=== PATIENT | male | born 1960 | race Two or more races ===

== ENCOUNTER 2018-09-29 11:43 | Inpatient (IN) | payer OTHER, MEDICAID ==
[~2018-09-29] VITALS: Ht 180.3 cm; Wt 130.9 kg
[2018-09-29 12:18] LABS: Basophils # (auto) 0.1 uL; Basophils % (auto) 0.8 % (0.0-2.0); Eosinophils # (auto) 0.1 uL; Eosinophils % (auto) 0.6 % (0.0-7.0); Hematocrit 43.1 % (41.0-53.0); Hemoglobin 14.1 g/dL (13.5-17.5); Lymphocytes # (auto) 1.3 uL; Lymphocytes % (auto) 14.2 % (10.0-50.0); Mean Corpuscular Hemoglobin 29.9 pg (28.0-32.0); Mean Corpuscular Hgb Conc. 32.6 g/dL (32.0-36.0); Mean Corpuscular Volume 91.7 fL (80.0-100.0); Monocytes # (auto) 1.2 uL; Monocytes % (auto) 13.3 % (0.0-12.0); Neutrophils # (auto) 6.5 uL; Neutrophils % (auto) 71.1 % (37.0-80.0); Platelet Count (auto) 212 10^3/uL (140-450); White Blood Cell 9.1 10^3/uL (4.4-10.8)
[2018-09-29 12:36] LABS: Albumin 2.9 g/dL (3.4-5.0); Calcium 7.9 mg/dL (8.5-10.1); Potassium 4.6 mmol/L (3.5-5.1)
[2018-09-29 12:42] LABS: BUN/Creatinine Ratio 15.8; Bilirubin, Total 0.5 mg/dL (0.2-1.0)
[2018-09-29] MEDS ORDERED: SODIUM CHLORIDE 0.9% 1,000 ML IV ONE (15:13)
[2018-09-29] MEDS ORDERED: ASPirin 81 mg TAB PO ONE (15:15)
[2018-09-29 15:46] LABS: Urine Bacteria NONE SEEN /hpf (None Seen); Urine Blood 1+ /uL (Negative); Urine Specific Gravity 1.013 (1.001-1.035); Urine WBC 3 /hpf (0 - 3)
[2018-09-29 16:06] LABS: INR 3.76 (0.9-1.15)
[2018-09-29] MEDS ORDERED: PROMETHAZINE HCL 25 MG/ML 1ML IV ONE (16:15)
[2018-09-29] MEDS ORDERED: MORPHINE SULFATE 4 MG/ML SYR/VIAL IV ONE (16:15)
[2018-09-29] MEDS ORDERED: KETOROLAC TROMETH 30 MG/ML 1ML VIAL IV ONE (16:30)
[2018-09-29] MEDS ORDERED: NITROGLYCERIN 0.4 MG SL TAB SL PRN (19:45)
[2018-09-29] MEDS ORDERED: MEPERIDINE HCL (25 MG/ML) 1ML VIAL IV PRN (19:45)
[2018-09-29] MEDS ORDERED: ACETAMINOPHEN 500 MG TAB PO PRN (19:45)
[2018-09-29] MEDS ORDERED: ONDANSETRON HCL 4 MG/2 ML VIAL IV PRN (19:45)
[2018-09-29] MEDS ORDERED: ATORVASTATIN 20 MG TAB PO SCH (22:00)
--- NOTE | 2018-09-29 22:20 | NUR ---
Telemetry admit from ER JORDYN SR admitted to Telemetry unit. Patient oriented to AYESHA FRANCO RN, unit, room, bed, and unit policies regarding patient care and visiting hours. Patient now on continuous telemetry monitoring, tele box # 30 and telemetry reading on arrival to unit is sinus rhythm in the 80s. Patient placed on bedside oxygen 3L NC. No signs or symptoms of distress noted at this time. Patient denies pain at this time. at bedside. Physical assessment performed. Reviewed plan of care with patient and , both verbalized understanding. Bed in low and locked position, call light within reach. Will continue to monitor Q1 hour and PRN.
--- NOTE | 2018-09-29 22:25 | NUR ---
Patient and are requesting transfer to [facility]. states "he is a [facility] member and I wound like for him to transfer there tomorrow if he is stable enough"
[2018-09-29 22:30] VITALS: BP 119/56
--- NOTE | 2018-09-29 23:00 | NUR ---
Patient placed on Bipap by RT. Patient has history of sleep apnea uses Bipap at home. Will continue to monitor Q1 hour and PRN.
[2018-09-29] MEDS: methylPREDNISolone SOD SUCC 125 MG/2 ML VL IV SCH (23:15)
[2018-09-29] MEDS: DOCUSATE SOD 100 MG CAP PO SCH (23:15)
--- NOTE | 2018-09-30 00:50 | NUR ---
Patient resting in bed with eyes closed. No signs or symptoms of distress noted at this time. Will continue to monitor Q1 hour and PRN.
[2018-09-30] MEDS ORDERED: WARF5TAB71 PO (01:35)
[2018-09-30] MEDS ORDERED: PRE5T PO (01:36)
[2018-09-30] MEDS ORDERED: ATO40T PO (01:36)
[2018-09-30] MEDS ORDERED: METH500T6 PO (01:36)
[2018-09-30] MEDS ORDERED: ALLO300T2 PO (01:36)
--- NOTE | 2018-09-30 05:14 | NUR ---
Paged RT Patient is requesting to be taken of Bipap at this time
[2018-09-30 05:31] LABS: Basophils # (auto) 0 uL; Basophils % (auto) 0.1 % (0.0-2.0); Eosinophils # (auto) 0 uL; Hematocrit 41.8 % (41.0-53.0); Hemoglobin 13.7 g/dL (13.5-17.5); Lymphocytes # (auto) 0.5 uL; Lymphocytes % (auto) 4.6 % (10.0-50.0); Mean Corpuscular Hemoglobin 30.1 pg (28.0-32.0); Mean Corpuscular Hgb Conc. 32.8 g/dL (32.0-36.0); Mean Corpuscular Volume 91.6 fL (80.0-100.0); Monocytes # (auto) 0.4 uL; Monocytes % (auto) 3.7 % (0.0-12.0); Neutrophils # (auto) 9.6 uL; Neutrophils % (auto) 91.6 % (37.0-80.0); Nucleated Red Blood Cells % 0.1 %; Platelet Count (auto) 200 10^3/uL (140-450); Red Blood Cells 4.56 10^6/uL (4.5-5.90); Red Cell Distribution Width 15.2 % (11.8-14.3); White Blood Cell 10.5 10^3/uL (4.4-10.8)
--- NOTE | 2018-09-30 05:50 | NUR ---
RT moved Bipap Patient placed on 4L NC, patient tolerating well. No signs or symptoms of distress noted at this time. Will continue to monitor Q1 hour and PRN. Addendum: 09/30/18 at 0604 by AYESHA FRANCO RN RN REMOVED BIPTAN
[2018-09-30 05:52] LABS: BUN/Creatinine Ratio 20.9; Calcium 8.2 mg/dL (8.5-10.1); Potassium 4.9 mmol/L (3.5-5.1)
[2018-09-30 05:54] VITALS: BP 122/77
[2018-09-30] MEDS: HYDROcodone-ACET 5/325MG TAB PO PRN ×3 (06:05→18:09)
--- NOTE | 2018-09-30 07:10 | NUR ---
Closing Note Report given to day shift RN. No signs or symptoms of distress noted at this time. Patient is on 4L NC. Denies shortness of breath
--- NOTE | 2018-09-30 07:20 | NUR ---
Open Shift Note Received report on patient, awake and sitting up in bed. Patient shows no signs of distress at this time. Discussed POC with patient. Bed in lowest locked position, side rails up x2, and call light within reach. Will continue to monitor.
[2018-09-30 09:00] VITALS: BP 102/60
[2018-09-30] MEDS ORDERED: ASPirin 81 mg TAB PO SCH (10:00)
[2018-09-30] MEDS: DOCUSATE SOD 100 MG CAP PO SCH (10:00)
[2018-09-30] MEDS ORDERED: NITROGLYCERIN 0.4MG/HR TOPICAL PATCH TD SCH (10:00)
[2018-09-30] MEDS: methylPREDNISolone SOD SUCC 125 MG/2 ML VL IV SCH (10:23)
[2018-09-30 10:33] VITALS: BP 122/77
--- NOTE | 2018-09-30 10:35 | NUR ---
Dr Jones at Bedside Dr Jones at patient bedside.
[2018-09-30 12:42] LABS: Uric Acid 11.1 mg/dL (3.5-7.2)
[2018-09-30 12:51] LABS: CRP High Sensitivity 17.3 mg/dL (< 0.3)
[2018-09-30 13:00] VITALS: BP 125/73
[2018-09-30] MEDS ORDERED: DEXTROSE (50%) 50ML SYRG IV PRN (13:15)
[2018-09-30] MEDS ORDERED: PANTOPRAZOLE 40 MG TAB PO ONE ×2 (13:15→13:30)
[2018-09-30] MEDS ORDERED: ALLOPURINOL 100 MG TAB PO ONE ×2 (13:17→13:30)
[2018-09-30] MEDS ORDERED: DOCUSATE SOD 100 MG CAP PO ONE (13:30)
[2018-09-30] MEDS ORDERED: methylPREDNISolone SOD SUCC 125 MG/2 ML VL IV ONE (13:30)
--- NOTE | 2018-09-30 14:12 | NUR ---
ORDER AND CLINICALS FAXED TO [facility] FOR TRANSFER
[2018-09-30 14:18] LABS: INR 2.81 (0.9-1.15); Partial Thromboplastin Time 50.9 sec (23.78-33.04); Prothrombin Time 28.4 sec (9.27-12.13)
--- NOTE | 2018-09-30 15:48 | NUR ---
Spoke with [facility]oke [facility] case management. They are aware of patient's transfer. Waiting for bed. Stated that once they speak with the doctor's they can determine if patient is going to [facility] or [facility].
[2018-09-30 17:00] VITALS: BP 117/70
[2018-09-30] MEDS ORDERED: ACCU-CHEK COMFORT CURVE STRIP VI SCH (18:00)
[2018-09-30] MEDS ORDERED: InsuLIN REG 1unit/0.01ml Soln (100units/ml) SC SCH (18:00)
--- NOTE | 2018-09-30 19:07 | NUR ---
End of Shift Endorsed care to NOC nurse. Bed in lowest locked position, side rails up x2, and call light within reach.
--- NOTE | 2018-09-30 19:10 | NUR ---
[facility] Called Spoke to [facility], transportation coming at 2100 to take patient to [facility]. [phone]
--- NOTE | 2018-09-30 19:30 | NUR ---
Opening Shift Note: A&Ox4, resting in bed. at bedside. Currently on 4LO2 via NC; patient wears 2LO2 at home; pain level 6/10 in right leg from gout flare; and currently bedrest from right leg pain. Bed locked in lowest position, side rails up x2, and call light within reach. IV 20 g in left wrist IID inserted on 09/29/18. Skin: no open wounds; generalized psoriasis. POC discussed and questions answered. Patient is pending transfer to [facility].
--- NOTE | 2018-09-30 20:00 | NUR ---
Call to pharmacy for warfarin. Per patient, he has not received coumadin since Sunday. Current INR 2.81. Spoke with pharmacist and will give the patient 7.5 mg in relationship to INR. Patient states his schedule of coumadin as such: Sunday: 10 mg Sunday, Sunday, and : 7.5 mg Sunday: 10 mg Sunday and Sunday: 7.5 mg
[2018-09-30] MEDS ORDERED: WARFARIN SODIUM 2.5 MG TAB PO ONE (20:30)
--- NOTE | 2018-09-30 21:15 | NUR ---
Report call to SRI Lucas at [facility]. Patient is going to room 640 with [facility] transportation.
[2018-09-30 22:00] VITALS: BP 137/68
[2018-09-30] MEDS ORDERED: methylPREDNISolone SOD SUCC 125 MG/2 ML VL IV SCH (22:00)
--- NOTE | 2018-09-30 22:05 | NUR ---
Discharge Note: Patient to be transported to [facility] RM # 640 SRI Lucas. Patient was given discharge instructions and signed all appropriate paperwork. [facility] transporters given appropriate paperwork along with imaging CD from the radiology department. Report was given to [facility].
[2018-10-01] MEDS ORDERED: ALLOPURINOL 100 MG TAB PO SCH (10:00)
[2018-10-01] MEDS ORDERED: PANTOPRAZOLE 40 MG TAB PO SCH (10:00)
== END 2018-09-30 22:05 | disposition short-term general hospital (02) | DRG 545 ==
LOC: ER 11:50 → TELE 19:49 → TELE-WESTW 22:19 → WEST WING 09-30 18:57
PROVIDERS: ADMIT Nurse Practitioner Acute Care; ATTEND Internal Medicine
DX: M06.9 Rheumatoid arthritis, unspecified (principal); J96.00 Acute respiratory failure, unspecified whether with hypoxia or hypercapnia; E44.0 Moderate protein-calorie malnutrition; I24.9 Acute ischemic heart disease, unspecified; E66.2 Morbid (severe) obesity with alveolar hypoventilation; Z68.41 Body mass index [BMI] 40.0-44.9, adult; M10.00 Idiopathic gout, unspecified site; Z88.5 Allergy status to narcotic agent; E78.5 Hyperlipidemia, unspecified; Z79.01 Long term (current) use of anticoagulants; Z85.038 Personal history of other malignant neoplasm of large intestine; Z86.711 Personal history of pulmonary embolism; I13.10 Hypertensive heart and chronic kidney disease without heart failure, with stage 1 through stage 4 chronic kidney disease, or unspecified chronic kidney disease; E13.22 Other specified diabetes mellitus with diabetic chronic kidney disease; N18.3 Chronic kidney disease, stage 3 (moderate); E13.65 Other specified diabetes mellitus with hyperglycemia; E13.21 Other specified diabetes mellitus with diabetic nephropathy
CPT/HCPCS: 36415; 71045; 80048; 80053; 80061; 81001; 82962; 83036; 83735; 83880; 84443; 84484; 84550; 85025; 85379; 85610; 85652; 85730; 86038; 86141; 86225; 86431; 87081; 93306; 94761; 96372; 96374; 96375; G0378; J1815; J1885